=== PATIENT | male | born 1985 | race Caucasian/White ===

== ENCOUNTER 2018-04-11 11:08 | Emergency (ER) | payer SELFPAY ==
[~2018-04-11] VITALS: Ht 167.6 cm; Wt 79.1 kg
[2018-04-11 11:14] VITALS: BP 178/58; PULSE 70; RESP 20; Ht 167.6 cm; Wt 79.1 kg
[2018-04-11] MEDS ORDERED: CLOT30CR24 TOP (12:18)
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
== END 2018-04-11 13:44 | disposition home or self-care (01) ==
LOC: FTE 11:08
DX: B35.9 Dermatophytosis, unspecified (principal); F17.210 Nicotine dependence, cigarettes, uncomplicated
CPT/HCPCS: 99282